=== PATIENT | female | born 1975 | race Asian ===

== ENCOUNTER 2019-06-16 06:32 | Emergency (ER) | payer BC ==
[~2019-06-16] VITALS: Ht 149.9 cm; Wt 89.8 kg
[2019-06-16 07:12] LABS: Basophils # (auto) 0.1 uL; Basophils % (auto) 1.3 % (0.0-2.0); Eosinophils # (auto) 0.1 uL; Eosinophils % (auto) 1.6 % (0.0-7.0); Hematocrit 40.9 % (36.0-46.0); Hemoglobin 13.6 g/dL (12.2-16.2); Lymphocytes # (auto) 1.3 uL; Lymphocytes % (auto) 16.3 % (10.0-50.0); Mean Corpuscular Hemoglobin 29.3 pg (28.0-32.0); Mean Corpuscular Hgb Conc. 33.2 g/dL (32.0-36.0); Mean Corpuscular Volume 88.1 fL (80.0-100.0); Monocytes # (auto) 0.3 uL; Monocytes % (auto) 3.4 % (0.0-12.0); Neutrophils # (auto) 6.4 uL; Neutrophils % (auto) 77.4 % (37.0-80.0); Platelet Count (auto) 396 10^3/uL (140-450); Red Blood Cells 4.65 10^6/uL (4.0-5.20); Red Cell Distribution Width 13.6 % (11.8-14.3); White Blood Cell 8.3 10^3/uL (4.4-10.8)
[2019-06-16 07:25] LABS: Albumin 3.7 g/dL (3.4-5.0); Anion Gap 9 (5-15); Blood Urea Nitrogen 9 mg/dL (7-18); Calcium 8.7 mg/dL (8.5-10.1); Carbon Dioxide 22 mmol/L (21-32); Chloride 107 mmol/L (98-107); Potassium 3.9 mmol/L (3.5-5.1); Sodium 138 mmol/L (136-145)
[2019-06-16 07:28] LABS: Alanine Aminotransferase 26 U/L (13-56); Aspartate Aminotransferase 18 U/L (15-37); GFR African American 140 mL/min; GFR Non-African American 116 mL/min; Glucose 109 mg/dL (74-106)
[2019-06-16 07:33] LABS: Alkaline Phosphatase 64 U/L (45-117); Bilirubin, Total 0.6 mg/dL (0.2-1.0)
[2019-06-16] MEDS ORDERED: SODIUM CHLORIDE 0.9% 1,000 ML IV ONE (08:06)
[2019-06-16 11:59] LABS: Urine Bacteria MOD /hpf (None Seen); Urine Blood Negative /uL (Negative); Urine Mucus FEW (None Seen); Urine Specific Gravity 1.014 (1.001-1.035); Urine WBC 13 /hpf (0 - 5)
[2019-06-16] MEDS ORDERED: IOHEXOL 350 MG/ML 100ML IJ ONE (12:25)
[2019-06-16] MEDS ORDERED: cefTRIAXone 1GM/50ML D5W 50 ML IV ONE (14:00)
[2019-06-16 15:00] VITALS: BP 118/50
== END 2019-06-16 15:35 | disposition home or self-care (01) ==
LOC: ER 06:32
DX: R79.1 Abnormal coagulation profile (principal); R42 Dizziness and giddiness; N39.0 Urinary tract infection, site not specified; E04.1 Nontoxic single thyroid nodule; E03.9 Hypothyroidism, unspecified; Z90.49 Acquired absence of other specified parts of digestive tract
CPT/HCPCS: 36415; 71046; 71275; 80053; 81001; 83735; 84443; 84484; 85025; 85379; 93005; 94761; 96361; 96365; 99284; J0696; J7030; Q9967